=== PATIENT | male | born 1990 | race Caucasian/White ===

== ENCOUNTER 2025-11-21 12:38 | Emergency (ER) | payer MEDICARE, SELFPAY ==
--- OUTSIDE RECORDS SUMMARY | 2025-11-21 12:44 | XMS_ITS | Clinical Summary ---
Author Organization [facility] Address [address] [place] [address] Phone Care Team Providers Care Supervisor Drying Name Role Phone Edd Huynh MD, Juliocesar Iona Primary Care Provider [phone] Allergies No known active allergies Medications No known medications Social History Tobacco Use Types Packs/Day Years Used Date Smoking Tobacco: Never Alcohol Use Standard Drinks/Week Comments No 0 (1 standard drink = 0.6 oz pur e alcohol) Sex and Gender Information Value Date Recorded Sex Assigned at Not on file Legal Sex Male 6:10 PM CDT Gender Identity Not on file Sexual Orientation Not on file Last Filed Vital Signs Vital Sign Reading Time Taken Comments Blood Pressure 122/87 09/12/2014 8:36 PM CDT Pulse 88 09/12/2014 8:36 PM CDT Temperature 36.7 C (98 F) 09/12/2014 6:20 PM CDT Respiratory Rate 18 09/12/2014 8:36 PM CDT Oxygen Saturation 98% 09/12/2014 8:36 PM CDT Inhaled Oxygen Concentration - - Weight 83 kg (183 lb) 09/12/2014 6:20 PM CDT Height 177.8 cm (5' 10 ) 09/12/2014 6:20 PM CDT Body Mass Index 26.26 09/12/2014 6:20 PM CDT Plan of Treatment Not on file Insurance BLUE [place]OSS [place] OUT OF STATE Member Subscriber Plan / Payer (Ef fective 2014-Present) Name:Kim Jonas Relation to Subscriber:Self Name:Pritesh Kim Payer ID:[id number] (NAIC) Type:Not on file Address: [facility] [place] AND OUT OF [facility] [address] [place] [address] Care Teams Supervisor Drying Relationship Specialty Start Date End Date Juliocesar Puga Jr., [place] [address] [address] PCP - General 09/12/14
[2025-11-21 12:56] VITALS: BP 125/83; PULSE 115; RESP 20; TEMP 39.5; O2SAT 99; BMI 23.3
--- NOTE | 2025-11-21 13:11 | ECG_ITS ---
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
--- NOTE | 2025-11-21 13:22 | W.ED.WEAKNES ---
HPI - Weakness General: Chief complaint: Weakness Stated complaint: cant sleep / NV Time Seen by Provider: 11/21/25 13:20 Source: patient Mode of arrival: ambulatory Limitations: no limitations History of Present Illness: This patient is a 35-year-old male with a history of multiple sclerosis on biannual disease-modifying therapy Ocrevus who presents to the emergency department with acute onset of chills, nausea, fatigue, and generalized malaise beginning early this morning. With triage he is tachycardic, tachypneic, and febrile with temperature 103.1. Symptoms started while he was driving from [place] to [place] early this morning. He does note some subjective fevers at home he took Tylenol last 0200 this morning. He is noting some mild abdominal discomfort but is denying any vomiting, diarrhea, chest pain, shortness of breath, cough, urinary symptoms, headache, neck stiffness, or focal neurological deficits. He denies recent sick contacts or travel. No other pertinent symptoms reported. MD Complaint: difficulty walking (Nausea, chills/fever, fatigue, malaise) Onset (ago): hour(s) Context: other (History of MS on Ocrevus) Associated symptoms: Reports chills, fever(s) and nausea; Denies chest pain, dysuria, headache(s) or vomiting Related Data Home Medications ?Medication ?Instructions ?Recorded ?Confirmed acetaminophen 500 mg tablet 500 mg PO QID PRN Fever Or Pain 11/21/25 11/21/25 (Tylenol Extra Strength) diphenhydramine HCl 25 mg capsule 25 mg PO TID PRN sleep 11/21/25 11/21/25 (ZzzQuil) melatonin 5 mg tablet 5 mg PO BEDTIME 11/21/25 11/21/25 Previous Rx's ?Medication ?Instructions ?Recorded nirmatrelvir 300 mg (150 mg See Rx Instructions PO .COMPLEX 11/21/25 x2)-ritonavir 100 mg tablet,dose #30 ea pack (Paxlovid) ondansetron HCl 4 mg tablet 4 mg PO Q8H #30 tabs 11/21/25 Allergies Allergy/AdvReac Type Severity Reaction Status Date / Time No Known Allergies Allergy Verified 11/21/25 13:04 Review of Systems General: Reports: 10 or more systems reviewed and unremarkable except in HPI and below Const: Reports: fever(s), chills, fatigue and malaise Eyes: Denies: change in vision ENMT: Denies: throat pain, ear or mastoid pain or nasal discharge Card: Denies: chest pain, palpitations, swelling of feet/ankles or lightheadedness Resp: Reports: dyspnea; Denies: productive cough or wheezing GI: Reports: nausea; Denies: abdominal pain, vomiting, diarrhea or constipation : Denies: flank pain, difficulty urinating, dysuria or urinary frequency Musc: Denies: neck pain, back pain or joint pain Skin/Breast: Denies: rash Neuro: Denies: headache(s), numbness in extremities or weakness in extremities Physical Exam Const: COMMON NORMALS: patient oriented x3 and no limitations GENERAL APPEARANCE: cooperative and well developed ORIENTATION/CONSCIOUSNESS: Yes awake, Yes oriented to person, Yes oriented to place and Yes oriented to time OTHER: Tremulous, anxious, ill-appearing HENMT: COMMON NORMALS: normocephalic, atraumatic and hearing grossly normal bilaterally HEAD & SCALP: normocephalic and atraumatic OTHER: Moist oral mucosa Eye: COMMON NORMALS: Equal, round and reactive pupils present and EOMs intact bilaterally PUPIL: Yes Equal, round and reactive pupils present Resp: COMMON NORMALS: No retractions, No use of accessory muscles and clear to auscultation bilaterally EFFORT & INSPECTION: Yes tachypneic AUSCULTATION: clear to auscultation bilaterally Cardio: COMMON NORMALS: regular rhythm, No clicks present (Cardio), No murmurs present (Cardio) and No rub (Cardio) RATE: tachycardic RHYTHM: regular rhythm GI: COMMON NORMALS: Normal to inspection, nondistended, normoactive bowel sounds present and Soft to palpation AUSCULTATION: Yes normoactive bowel sounds PALPATION: Yes Soft to palpation RECTAL EXAM: Yes deferred OTHER: Mild upper abdominal tenderness to palpation Extremity: COMMON NORMALS: normal to inspection, full ROM and capillary refill normal Neuro: COMMON NORMALS: patient oriented x3, moves all extremities, no focal motor deficits and no sensory deficits noted SENSORIUM/ORIENTATION: Yes oriented to person, Yes oriented to place and Yes oriented to time Skin: COMMON NORMALS: no rashes or lesions noted GENERAL SKIN EXAM: no rashes or lesions noted Course Vital Signs: Vital signs: Vital Signs Temperature 99.9 F H 11/21/25 15:00 Pulse Rate 94 11/21/25 17:16 Respiratory Rate 20 H 11/21/25 14:04 Blood Pressure 128/80 11/21/25 17:16 Pulse Oximetry 100 11/21/25 17:16 Oxygen Delivery Me thod Room Air 11/21/25 14:04 MDM - Weakness Medical Decision Making This is a 35-year-old male with history of multiple sclerosis on biannual immunomodulatory therapy who presented with acute onset of fever, chills, nausea, fatigue, malaise. Given his immunocompromise state and initial tachycardia and fever, a broad infectious workup was pursued. CBC, CMP, TSH, urinalysis, and chest x-ray were unremarkable without evidence of bacterial infection or other acute pathology. Blood cultures had been ordered preliminary. His lactic acid and reflex lactic acid were also unremarkable. Viral testing was positive for COVID-19. The patient was treated symptomatically in the ED with 2 L of IV fluids, initial acetaminophen for fever control, ketorolac for body aches later, and Zofran with significant improvement in symptoms and normalization of vital signs. Given recent onset of symptoms and increased risk for progression due to immunocompromise status, shared decision making was performed and the patient elected to start Paxlovid. Renal function was reviewed and found to be appropriate, and no contraindicating drug interactions were identified. The patient is clinically improved, tolerating oral intake, hemodynamically stable, and deemed safe for discharge and close outpatient follow-up and strict return precautions. Lab Data 11/21/25 13:35 11/21/25 13:35 Radiology Impressions Chest X-Ray 11/21/25 13:27 IMPRESSION: No acute findings. Chest/Abdomen/Pelvis CT 11/21/25 15:31 IMPRESSION: No acute findings. IMPRESSION: No acute findings. Laboratory Results WBC 9.90 10^3/uL (3.29-11.43) 11/21/25 13:35 RBC 5.25 10^6/uL (3.85-5.65) 11/21/25 13:35 Hgb 15.20 g/dL (11.27-16.99) 11/21/25 13:35 Hct 44.5 % (37-53) 11/21/25 13:35 MCV 84.8 fl (82-101) 11/21/25 13:35 MCH 29.0 pg (27-33) 11/21/25 13:35 MCHC 34.2 g/dL (30-55) 11/21/25 13:35 RDW 13.2 % (12.1-15.1) 11/21/25 13:35 Plt Count 312 10^3/cmm (157-399) 11/21/25 13:35 MPV 9.3 fL (7.4-10.4) 11/21/25 13:35 Neut % (Auto) 77.8 % 11/21/25 13:35 Lymph % (Auto) 5.7 % 11/21/25 13:35 Weber % (Auto) 14.7 % 11/21/25 13:35 Eos % (Auto) 0.8 % 11/21/25 13:35 Baso % (Auto) 0.3 % 11/21/25 13:35 Neut # (Auto) 7.70 10^3/uL (1.8-7.7) 11/21/25 13:35 Lymph # (Auto) 0.6 10^3/uL (0.8-4.8) L 11/21/25 13:35 Weber # (Auto) 1.5 10^3/uL (0.2-0.9) H 11/21/25 13:35 Eos # (Auto) 0.1 10^3/uL (0.0-0.8) 11/21/25 13:35 Baso # (Auto) 0.0 10^3/uL (0.0-0.1) 11/21/25 13:35 Nucleated RBC % (auto) 0 % 11/21/25 13:35 Nucleated RBCs # 0.0 /100WBC 11/21/25 13:35 Sodium 136 mmol/L (136-145) 11/21/25 13:35 Potassium 3.0 mmol/L (3.5-5.1) L 11/21/25 13:35 Chloride 100 mmol/L (98-107) 11/21/25 13:35 Carbon Dioxide 21 mmol/L (22-29) L 11/21/25 13:35 Anion Gap 18.0 (5-19) 11/21/25 13:35 BUN 8 mg/dL (6-20) 11/21/25 13:35 Creatinine 0.9 mg/dL (0.7-1.2) 11/21/25 13:35 GFR Calculation 97.2 mL/min (90-130) 11/21/25 13:35 Glucose 104 mg/dL (65-115) 11/21/25 13:35 Calculated Osmolality 281 mOsm/kg (285-295) L 11/21/25 13:35 Lactic Acid 2.2 mmol/L (0.5-2.2) 11/21/25 13:35 Lactic Acid (Sepsis) 1.0 mmol/L (0.5-2.2) 11/21/25 16:55 Calcium 9.2 mg/dL (8.5-10.5) 11/21/25 13:35 Magnesium 1.9 mg/dL (1.7-2.3) 11/21/25 13:35 Total Bilirubin 0.4 mg/dL (0.15-1.2) 11/21/25 13:35 AST 22 U/L (0-40) 11/21/25 13:35 ALT 31 U/L (0-41) 11/21/25 13:35 Alkaline Phosphatase 79 U/L (40-130) 11/21/25 13:35 Total Protein 7.3 g/dL (6.6-8.7) 11/21/25 13:35 Albumin 4.4 g/dL (3.5-5.2) 11/21/25 13:35 Globulin 2.9 g/dL (1.3-4.6) 11/21/25 13:35 Lipase 24 U/L (13-60) 11/21/25 13:35 TSH 0.54 uIU/mL (0.27-4.20) 11/21/25 13:35 Urine Color Yellow (Yellow) 11/21/25 14:33 Urine Appearance Clear (CLEAR) 11/21/25 14:33 Urine pH 7.0 (5-7) 11/21/25 14:33 Ur Specific [place] 1.016 (1.005-1.030) 11/21/25 14:33 Urine Protein Negative (Negative) 11/21/25 14:33 Urine Glucose (UA) Negative (Normal) 11/21/25 14:33 Urine Ketones Negative (Negative) 11/21/25 14:33 Urine Blood 1+ (Negative) A 11/21/25 14:33 Urine Nitrate Negative (Negative) 11/21/25 14:33 Urine Bilirubin Negative (Negative) 11/21/25 14:33 Urine Urobilinogen 1.0 mg/dL (Negative) 11/21/25 14:33 Ur Leukocyte Esterase Negative (Negative) 11/21/25 14:33 Urine RBC 6-10 /hpf (0-2) 11/21/25 14:33 Urine WBC 0-5 /hpf (0-5) 11/21/25 14:33 Ur Squamous Epith Cells 0-5 /hpf (0-5) 11/21/25 14:33 Amorphous Sediment Not Reportable 11/21/25 14:33 Urine Bacteria None seen /hpf (NONE) 11/21/25 14:33 Hyaline Casts 0-4 /lpf H 11/21/25 14:33 Influenza A (PCR) Negative (Negative) 11/21/25 14:20 Influenza Type B (PCR) Negative (Negative) 11/21/25 14:20 RSV (PCR) Negative (Negative) 11/21/25 14:20 SARS-CoV-2 (PCR) Positive (Negative) A 11/21/25 14:20 All radiology interpretation(s) finalized by discharge Discharge Plan Discharge Patient Disposition: Home Clinical Impression: COVID-19 Condition: Stable Prescriptions: New ondansetron HCl 4 mg tablet 4 mg PO Q8H Qty: 30 0RF Paxlovid 300 mg (150 mg x 2)-100 mg tablets,dose pack See Rx Instructions .ROUTE .COMPLEX Qty: 30 0RF Rx Instructions: take TWO 150 mg tablets of nirmatrelvir with ONE 100 mg tablet of ritonavir twice daily for 5 days No Action acetaminophen [Tylenol Extra Strength] 500 mg Tablet 500 mg PO QID PRN (Reason: Fever Or Pain) diphenhydramine HCl [ZzzQuil] 25 mg Capsule 25 mg PO TID PRN (Reason: sleep ) melatonin 5 mg Tablet 5 mg PO BEDTIME Discharge Orders: Discharge ED (Routine); Ordered 11/21/25 Ordered By: Freedom Jack Patient Instructions: Patient Portal & Ophelia Instructions Activity Restrictions/Additional Instructions: COVID-19 Discharge Instructions Diagnosis: You have been diagnosed with COVID-19 (coronavirus infection). Your evaluation in the emergency department showed that you have a mild case and can safely recover at home. What to Expect: Most people with COVID-19 recover at home with rest and supportive care. Your symptoms of fever, chills, fatigue, and nausea should gradually improve over the next 1-2 weeks. Some symptoms like fatigue may last longer. Home Care Instructions: Isolation: - Stay home and isolate from others for at least 10 days from when your symptoms first started - You can end isolation after 10 days if you have been fever-free for at least 24 hours without using fever-reducing medications (like Tylenol or ibuprofen) AND your symptoms are improving - Stay in a separate room from other household members when possible - Use a separate bathroom if available - Wear a mask when around others in your home - Do not leave home except for medical care Symptom Management: - Rest and drink plenty of fluids - Take acetaminophen (Tylenol) or ibuprofen (Advil/Motrin) as needed for fever, body aches, and headache - Use [id number] medications for nausea if needed - Get plenty of sleep to help your body recover Preventing Spread to Others: - Wash your hands frequently with soap and water for at least 20 seconds - Cover your coughs and sneezes with a tissue or your elbow - Avoid sharing dishes, cups, towels, and bedding with others - Clean and disinfect frequently touched surfaces daily (doorknobs, light switches, phones, etc.) - Household members should monitor themselves for symptoms When to Return to the Emergency Department: Seek immediate medical attention if you develop any of the following warning signs: - Difficulty breathing or shortness of breath - Persistent chest pain or pressure - New confusion or difficulty waking up - Bluish lips or face - Inability to keep down fluids due to persistent vomiting - Severe or worsening symptoms - Fever that persists beyond 3 days or returns after improving Follow-Up: - Contact your primary care doctor within 2-3 days to update them on your diagnosis - Most people do not need repeat COVID-19 testing to return to normal activities - If your symptoms worsen or do not improve after 10 days, contact your doctor Additional Information: - Notify any close contacts from the 2 days before your symptoms started so they can monitor for symptoms - You may continue to test positive on COVID-19 tests for weeks after infection, but this does not mean you are still contagious - If symptoms return after improving (rebound), restart isolation and contact your doctor Print Language: British Coding Level of Care Code ED Nutrition And Dietetics Instructor for Gildardo Mathis
--- NOTE | 2025-11-21 13:27 | XRR_ITS ---
PROCEDURE INFORMATION: Exam: XR Chest Exam date and time: 11/21/2025 1:37 PM Age: 35 years old Clinical indication: Chest wall pain; Additional info: Fever TECHNIQUE: Imaging protocol: Radiologic exam of the chest. Views: 1 view. COMPARISON: No relevant prior studies available. FINDINGS: Lungs: Unremarkable. No consolidation or mass. Pleural spaces: Unremarkable. No pleural effusion. No pneumothorax. Heart/Mediastinum: Unremarkable. No cardiomegaly. Bones/joints: Unremarkable. XR/XR chest 1V portable [id number] IMPRESSION: No acute findings.
[2025-11-21 13:43] LABS: Hematocrit 44.5 % (37-53); Hemoglobin 15.20 g/dL (11.27-16.99); Mean Corpuscular HGB Conc 34.2 g/dL (30-55); Mean Corpuscular Hemoglobin 29.0 pg (27-33); Mean Corpuscular Volume 84.8 fl (82-101); Nucleated Red Blood Cells % 0 %; Platelet Count 312 10^3/cmm (157-399); Red Blood Count 5.25 10^6/uL (3.85-5.65); White Blood Count 9.90 10^3/uL (3.29-11.43)
[2025-11-21] MEDS: ondansetron 2 mg/ML SDV 2 mL 4 MG IVP (13:52)
[2025-11-21 13:55] VITALS: BP 141/87; PULSE 108; RESP 20; O2SAT 99
[2025-11-21 14:04] VITALS: BP 130/86; PULSE 113; RESP 20; O2SAT 95
[2025-11-21 14:04] LABS: Lactic Sepsis W/Reflex 2.2 mmol/L (0.5-2.2)
[2025-11-21 14:05] LABS: Alanine Aminotransferase 31 U/L (0-41); Albumin Level 4.4 g/dL (3.5-5.2); Alkaline Phosphatase 79 U/L (40-130); Anion Gap 18.0 (5-19); Aspartate Amino Transferase 22 U/L (0-40); Blood Urea Nitrogen 8 mg/dL (6-20); Calcium 9.2 mg/dL (8.5-10.5); Carbon Dioxide 21 mmol/L (22-29); Chloride 100 mmol/L (98-107); Globulin 2.9 g/dL (1.3-4.6); Glucose 104 mg/dL (65-115); Lipase 24 U/L (13-60); Magnesium 1.9 mg/dL (1.7-2.3); Osmolality Calculated 281 mOsm/kg (285-295); Potassium 3.0 mmol/L (3.5-5.1); Sodium 136 mmol/L (136-145); Total Protein 7.3 g/dL (6.6-8.7)
[2025-11-21 14:21] LABS: Reflex Lactate Order REFLEX LACTIC ORDERD
[2025-11-21 14:39] LABS: Glucose Urine UA Negative (Normal); Nitrate Urine Negative (Negative); Specific Gravity, Urine 1.016 (1.005-1.030)
[2025-11-21 14:44] LABS: Add Urine Microscopic? YES
[2025-11-21 15:00] VITALS: TEMP 37.7
--- NOTE | 2025-11-21 15:31 | CTR_ITS ---
PROCEDURE INFORMATION: Exam: CT Chest With Contrast; Diagnostic Exam date and time: 11/21/2025 3:37 PM Age: 35 years old Clinical indication: Nausea; Fever; Additional info: Fever, abd pain, nausea, HX of ms TECHNIQUE: Imaging protocol: Diagnostic computed tomography of the chest with contrast. Radiation optimization: All CT scans at this facility use at least one of these dose optimization techniques: automated exposure control; mA and/or kV adjustment per patient size (includes targeted exams where dose is matched to clinical indication); or iterative reconstruction. Contrast material: OMNI 350; Contrast volume: 100 ml; Contrast route: INTRAVENOUS (IV); COMPARISON: CR (CHEST, ) 11/21/2025 1:37 PM RADIATION DOSE METRICS: Total DLP (mGy-cm): 784.6 FINDINGS: Lungs: Unremarkable. No consolidation. No masses. Pleural spaces: Unremarkable. No pneumothorax. No pleural effusion. Heart: Unremarkable. No cardiomegaly. No pericardial effusion. Lymph nodes: Unremarkable. No enlarged lymph nodes. Vasculature: Unremarkable. No aortic aneurysm. Bones/joints: Unremarkable. No acute fracture. Soft tissues: Unremarkable. PROCEDURE INFORMATION: Exam: CT Abdomen And Pelvis With Contrast Exam date and time: 11/21/2025 3:37 PM Age: 35 years old Clinical indication: Nausea; Fever; Additional info: Fever, abd pain, nausea, HX of ms TECHNIQUE: Imaging protocol: Computed tomography of the abdomen and pelvis with contrast. Radiation optimization: All CT scans at this facility use at least one of these dose optimization techniques: automated exposure control; mA and/or kV adjustment per patient size (includes targeted exams where dose is matched to clinical indication); or iterative reconstruction. Contrast material: OMNI 350; Contrast volume: 100 ml; Contrast route: INTRAVENOUS (IV); COMPARISON: CR (CHEST, ) 11/21/2025 1:37 PM RADIATION DOSE METRICS: Total DLP (mGy-cm): 784.6 FINDINGS: Lungs: Lung bases are clear. No pleural effusion. Liver: Normal. No mass. Gallbladder and biliary ducts: Normal. No calcified stones. No ductal dilation. Pancreas: Normal. No ductal dilation. Spleen: Normal. No splenomegaly. Adrenal glands: Normal. No mass. Kidneys and ureters: Normal. No hydronephrosis. Stomach and bowel: Unremarkable. No obstruction. No mucosal thickening. Appendix: No evidence of appendicitis. Intraperitoneal space: Unremarkable. No free air. No significant fluid collection. Vasculature: Unremarkable. No abdominal aortic aneurysm. Lymph nodes: Unremarkable. No enlarged lymph nodes. Urinary bladder: Unremarkable as visualized. Reproductive: Unremarkable as visualized. Bones/joints: Unremarkable. No acute fracture. Soft tissues: Unremarkable. CT/CT chest abdpel w/*[id number] IMPRESSION: No acute findings. IMPRESSION: No acute findings.
[2025-11-21] MEDS: iohexol 350 mg/mL 500 mL Btl (per mL) IV (15:40)
[2025-11-21 16:06] LABS: Thyroid Stimulating Hormone 0.54 uIU/mL (0.27-4.20)
[2025-11-21 16:35] LABS: Respiratory Syncytial Virus Ce NEGATIVE (Negative)
[2025-11-21 16:45] LABS: SARS-CoV-2 PCR Positive (Negative)
[2025-11-21 17:16] VITALS: BP 128/80; PULSE 94; O2SAT 100
[2025-11-21 17:17] LABS: Lactic Acid level (Lactate) 1.0 mmol/L (0.5-2.2)
== END 2025-11-21 17:16 | disposition home or self-care (01) ==
PROVIDERS: Emergency Medicine; Emergency Provider Physician Assistant
DX: U07.1 COVID-19 (principal); Z11.52 Encounter for screening for COVID-19
CPT/HCPCS: 36415; 71045; 71260; 74177; 80053; 81001; 83605; 83690; 83735; 84443; 85025; 87040; 87637; 93005; 96361; 96374; 99285; J2405; J7030; J9999